=== PATIENT | male | born 1985 | race Native Hawaiian/Other Pacific Islander ===

== ENCOUNTER 2019-10-08 13:35 | Emergency (ER) | payer OTHER ==
[~2019-10-08] VITALS: Ht 172.7 cm; Wt 72.6 kg
[2019-10-08 13:47] VITALS: TEMP 98.4
[2019-10-08 15:20] VITALS: BP 121/78
== END 2019-10-08 15:20 | disposition home or self-care (01) ==
LOC: ED 13:35
DX: S63.592A Other specified sprain of left wrist, initial encounter (principal); S53.492A Other sprain of left elbow, initial encounter; W11.XXXA Fall on and from ladder, initial encounter; Y92.89 Other specified places as the place of occurrence of the external cause
CPT/HCPCS: 96372; 99283; J1885